=== PATIENT | female | born 2000 | race Caucasian/White ===

== ENCOUNTER 2019-03-21 11:28 | Outpatient (RCR) | payer OTHER, SELFPAY ==
[2019-03-05 17:20] VITALS: BP 128/76
[2019-03-10 09:36] VITALS: BP 122/81
[2019-03-10 09:55] LABS: Glucose 1 Hour PP 50gm Dose 159 mg/dL
[2019-03-14 11:28] VITALS: BP 124/74; PULSE 85
--- NOTE | ~2019-03-21 | US_ITS ---
EXAMINATION: US OB BPP wo non-stress EXAM DATE: 03/21/2019 12:19 INDICATION: IUGR. Third trimester. TECHNIQUE: Pelvic obstetrical transabdominal sonogram was performed by a technologist. There are mu ltiple grayscale and Doppler images available for interpretation. Comparison is made to prior examina tion from 03/14/2019. FINDINGS: There is a single fetus identified in vertex presentation with a heart rate of 147 beats pe r minute. The placenta is located in the anterior position. There is no sonographic evidence of retr oplacental hemorrhage identified. BIOPHYSICAL PROFILE (performed by the technologist) breathing (30 sec sustained breathing in 30 minutes): 2 out of 2 movement (3 gross body movements in 30 minutes): 2 out of 2 tone (one episode of lftgytq-fskeazfmg-gsoumwp limb movement): 2 out of 2 Amniotic fluid pocket (2 cm): 2 out of 2 Total score: 8 out of 8 IMPRESSION: 1. Single fetus with heart rate of 147 bpm. 2. Normal biophysical profile score of 8 out of 8. Reviewed, dictated and finalized at location B. 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
--- NOTE | ~2019-03-21 | US_ITS ---
EXAMINATION: US OB BPP wo non-stress DATE: 03/05/2019 17:12 INDICATION: Intrauterine growth restriction. Third trimester. TECHNIQUE: Real-time pelvic ultrasound was performed. COMPARISON: None. FINDINGS: There is a single living fetus in vertex presentation. The placenta is fundal. heart rate is 1 30 beats per minute (bpm). Biophysical profile performed by the technologist: breathing (30 sec sustained breathing in 30 minutes): 2 out of 2 movement (3 gross body movements in 30 minutes): 2 out of 2 tone (one episode of vxgsrib-phdmrbclr-fnxgier limb movement): 2 out of 2 Amniotic fluid pocket (2 cm): 2 out of 2 Total score: 8 out of 8 IMPRESSION: 1. Single living fetus in vertex presentation. 2. Biophysical profile 8 out of 8. Reviewed, dictated and finalized at location A. 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
--- NOTE | ~2019-03-21 | US_ITS ---
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 FINDINGS: No prior studies for comparison. There is a single living fetus in vertex presentation. The placenta is anterior without placenta pre via. cardiac activity and movement is noted with a heart rate of 150 beats per minute. Biophysical profile: breathin of 2 movement: 2 of 2 tone: 2 of 2 Amniotic flud pocket: 2 of 2 Total score: 8 of 8 IMPRESSION: 1. Single living intrauterine in vertex presentation. 2: Total biophysical profile score of 8/8. Reviewed, dictated and finalized at location A. 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
[2019-03-21 12:00] VITALS: BP 124/88; PULSE 119
== END 2019-06-02 13:19 | disposition home or self-care (01) ==
LOC: ANHOBOP 11:28
PROVIDERS: Obstetrics & Gynecology; PCP Pediatrics; Visit Provider Obstetrics & Gynecology
DX: O36.5930 Maternal care for other known or suspected poor fetal growth, third trimester, not applicable or unspecified (principal); Z3A.35 35 weeks gestation of pregnancy; Z3A.36 36 weeks gestation of pregnancy; Z3A.37 37 weeks gestation of pregnancy
CPT/HCPCS: 36415; 59025; 76819; 82947